=== PATIENT | female | born 1965 | race Caucasian/White ===

== ENCOUNTER 2024-03-12 23:59 | Emergency (ER) | payer OTHER, MEDICAID, SELFPAY ==
[2024-03-13] VITALS (62 sets, daily range): BP systolic 104–178; BP diastolic 57–95; PULSE 52–85; RESP 10–23; TEMP 36.8; O2SAT 86–99; BMI 34.0
[2024-03-13 00:47] LABS: Basophils % 0.4 %; Eosinophils # 0.1 10^3/uL (0.0-0.8); Eosinophils % 1.2 %; Hematocrit 43.1 % (36-47); Lymphocytes # 1.1 10^3/uL (0.8-4.8); Lymphocytes % 11.4 %; Mean Corpuscular HGB Conc 32.9 g/dL (30-55); Mean Corpuscular Hemoglobin 30.8 pg (27-33); Mean Corpuscular Volume 93.5 fl (85-98); Mean Platelet Volume 10.6 fL (7.4-10.4); Monocytes # 0.6 10^3/uL (0.2-0.9); Monocytes % 6.2 %; Neutrophils # 7.54 10^3/uL (1.8-7.7); Neutrophils % 80.4 %; Nucleated Red Blood Cells % 0 %; Platelet Count 283 10^3/cmm (157-399); Red Blood Count 4.61 10^6/uL (3.85-5.65); Red Cell Distribution Width 13.4 % (12.1-15.1); White Blood Count 9.38 10^3/uL (3.29-11.43)
--- NOTE | 2024-03-13 01:18 | ED_ITS ---
HPI - Abdominal Pain 2 General: Chief Complaint: Abdominal Pain Stated Complaint: RUQ abd pain Time Seen by Provider: 03/13/24 00:17 History of Present Illness: Patient presents today with right upper quadrant abdominal pain started around 6 PM tonight after dinner. She describes it as a sharp stabbing pain rates it a 10 out of 10, patient does have nausea vomiting with this pain. She does have a history of a pancreatic cyst and a cholecystectomy in the past. Review of Systems 2 General: Reports: 10 or more systems reviewed and unremarkable except in HPI and below Physical Exam 2 Const: COMMON NORMALS: no acute distress, average body habitus, patient oriented x3, no limitations, healthy appearing, alert and well nourished HENMT: COMMON NORMALS: normocephalic, atraumatic, hearing grossly normal bilaterally, external ears normal, Normal external nose present and moist oral mucous membranes HEAD & SCALP: normocephalic and atraumatic NOSE: Normal external nose present EXTERNAL EAR: Yes external ears normal Neck/C-Spine: COMMON NORMALS: no JVD Chest: COMMONS NORMALS: normal inspection of the chest and normal palpation of entire chest wall Resp: COMMON NORMALS: normal respiratory effort, No retractions, No use of accessory muscles and clear to auscultation bilaterally AUSCULTATION: clear to auscultation bilaterally Cardio: COMMON NORMALS: no JVD, regular rate, regular rhythm, S1 normal heart sound present, S2 normal heart sound present, No gallops present (Cardio), No clicks present (Cardio), No murmurs present (Cardio) and No rub (Cardio) R ATE: regular rate RHYTHM: regular rhythm HEART SOUNDS: S1 normal heart sound present and S2 normal heart sound present GI: COMMON NORMALS: Normal to inspection, nondistended, normoactive bowel sounds present, Soft to palpation, No hepatosplenomegaly present and no masses; negative for non-tender (Tender to palpate right upper quadrant) PALPATION: Y es Soft to palpation and Yes No hepatosplenomegaly present Neuro: COMMON NORMALS: patient oriented x3 SENSORIUM/ORIENTATION: Yes alert Course 2 Vital Signs: Vital signs: Vital Signs Temperature 98.2 F 03/13/24 00:05 Pulse Rate 58 L 03/13/24 04:00 Respiratory Rate 20 H 03/13/24 05:03 Blood Pressure 132/81 03/13/24 04:00 Pulse Oximetry 96 03/13/24 05:03 Oxygen Delivery Me thod Room Air 03/13/24 04:00 MDM - Abdominal Pain Medical Decision Making Patient results were discussed with the patient about her elevated lipase or abnormal CT scan that suggested an MRCP that was needed Dolores [place] was called Dr. Celaya in the hospital accepted patient to their med/tele bed. They will call us with a bed assignment. Differential Diagnosis Likely abdominal pain Medical Records I reviewed the patient's medical records. Lab Data I reviewed the patient's lab results. 03/13/24 00:33 03/13/24 01:22 Labs/Radiology: Radiology Impressions Abdomen/Pelvis CT 03/13/24 01:58 IMPRESSION: 1. 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 Recommend GI consultation and magnetic resonance cholangiopancreatography for further assessment. Correlate with laboratory findings and patient history for pancreatitis as there is some minimal surrounding inflammatory change at the superior aspect of this cystic lesion/mass. 2. Pleural-parenchymal nodularity of the left lower lung field as detailed above. For patients at low risk (minimal or absent history of smoking and of other known risk factors), recommend CT Chest at 6-12 months, then consider CT Chest at 18-24 months. For patients at high risk (history of smoking or of other known risk factors), recommend CT Chest at 6-12 months, then CT Chest at 18-24 months. (Reference: María) 3. Additional nonacute findings as above. REFERENCES: Ruperthomarlyn H, et al. Guidelines for Management of Incidental Pulmonary Nodules Detected on CT Images: From the Fleischner Society 2017. Radiology. 2017;284(1):228-243. Laboratory Results WBC 9.38 10^3/uL (3.29-11.43) 03/13/24 00:33 RBC 4.61 10^6/uL (3.85-5.65) 03/13/24 00:33 Hgb 14.20 g/dL (11.27-16.99) 03/13/24 00:33 Hct 43.1 % (36-47) 03/13/24 00:33 MCV 93.5 fl (85-98) 03/13/24 00:33 MCH 30.8 pg (27-33) 03/13/24 00:33 MCHC 32.9 g/dL (30-55) 03/13/24 00:33 RDW 13.4 % (12.1-15.1) 03/13/24 00:33 Plt Count 283 10^3/cmm (157-399) 03/13/24 00:33 MPV 10.6 fL (7.4-10.4) H 03/13/24 00:33 Neut % (Auto) 80.4 % 03/13/24 00:33 Lymph % (Auto) 11.4 % 03/13/24 00:33 Gonzales % (Auto) 6.2 % 03/13/24 00:33 Eos % (Auto) 1.2 % 03/13/24 00:33 Baso % (Auto) 0.4 % 03/13/24 00:33 Neut # (Auto) 7.54 10^3/uL (1.8-7.7) 03/13/24 00:33 Lymph # (Auto) 1.1 10^3/uL (0.8-4.8) 03/13/24 00:33 Gonzales # (Auto) 0.6 10^3/uL (0.2-0.9) 03/13/24 00:33 Eos # (Auto) 0.1 10^3/uL (0.0-0.8) 03/13/24 00:33 Baso # (Auto) 0.0 10^3/uL (0.0-0.1) 03/13/24 00:33 Nucleated RBC % (auto) 0 % 03/13/24 00:33 Nucleated RBCs # 0.0 /100WBC 03/13/24 00:33 Sodium 140 mmol/L (136-145) 03/13/24 01:22 Potassium 4.1 mmol/L (3.5-5.1) 03/13/24 01:22 Chloride 104 mmol/L (98-107) 03/13/24 01:22 Carbon Dioxide 24 mmol/L (22-29) 03/13/24 01:22 Anion Gap 16.1 (5-19) 03/13/24 01:22 BUN 17 mg/dL (8-23) 03/13/24 01:22 Creatinine 0.7 mg/dL (0.5-0.9) 03/13/24 01:22 GFR Calculation 85.4 mL/min (90-130) L 03/13/24 01:22 Glucose 175 mg/dL (65-115) H 03/13/24 01:22 Calculated Osmolality 296 mOsm/kg (285-295) H 03/13/24 01:22 Calcium 9.6 mg/dL (8.5-10.5) 03/13/24 01:22 Magnesium 1.8 mg/dL (1.7-2.3) 03/13/24 01:22 Total Bilirubin 0.3 mg/dL (0.15-1.2) 03/13/24 01:22 AST 18 U/L (0-32) 03/13/24 01:22 ALT 20 U/L (0-33) 03/13/24 01:22 Alkaline Phosphatase 74 U/L (35-105) 03/13/24 01:22 Total Protein 7.2 g/dL (6.6-8.7) 03/13/24 01:22 Albumin 4.2 g/dL (3.5-5.2) 03/13/24 01:22 Globulin 3.0 g/dL (1.3-4.6) 03/13/24 01:22 Lipase 822 U/L (13-60) H 03/13/24 01:22 Urine Color Yellow (Yellow) 03/13/24 01:44 Urine Appearance Clear (CLEAR) 03/13/24 01:44 Urine pH 7.0 (5-7) 03/13/24 01:44 Ur Specific [place] 1.022 (1.005-1.030) 03/13/24 01:44 Urine Protein Negative (Negative) 03/13/24 01:44 Urine Glucose (UA) Negative (Normal) 03/13/24 01:44 Urine Ketones 1+ (Negative) H 03/13/24 01:44 Urine Blood Negative (Negative) 03/13/24 01:44 Urine Nitrate Negative (Negative) 03/13/24 01:44 Urine Bilirubin Negative (Negative) 03/13/24 01:44 Urine Urobilinogen 1.0 mg/dL (Negative) 03/13/24 01:44 Ur Leukocyte Esterase Trace (Negative) A 03/13/24 01:44 Urine RBC 0-2 /hpf (0-2) 03/13/24 01:44 Urine WBC 0-5 /hpf (0-5) 03/13/24 01:44 Ur Squamous Epith Cells 0-5 /hpf (0-5) 03/13/24 01:44 Amorphous Sediment Not Reportable 03/13/24 01:44 Urine Bacteria None seen /hpf (NONE) 03/13/24 01:44 Hyaline Casts 0-4 /lpf H 03/13/24 01:44 All radiology interpretation(s) finalized by discharge Discharge Plan Discharge Patient Disposition: Xfer Short-Term Hosp Clinical Impression: Acute pancreatitis Condition: Stable Coding Level of Care Code ED Critical Care Physician for Aviva Howe
[2024-03-13] MEDS: ondansetron 2 mg/ML SDV 2 mL 4 MG IVP (01:24)
[2024-03-13] MEDS: morphine 4 mg/mL SDV 1 mL IVP ×3 (01:25→16:20)
[2024-03-13] MEDS: ketorolac 30 mg/mL INJ IVP (01:28)
[2024-03-13] MEDS: sodium chloride 0.9% 1,000 ML 999 ML IV (01:31)
[2024-03-13 01:48] LABS: Alanine Aminotransferase 20 U/L (0-33); Albumin Level 4.2 g/dL (3.5-5.2); Alkaline Phosphatase 74 U/L (35-105); Anion Gap 16.1 (5-19); Aspartate Amino Transferase 18 U/L (0-32); Blood Urea Nitrogen 17 mg/dL (8-23); Calcium 9.6 mg/dL (8.5-10.5); Carbon Dioxide 24 mmol/L (22-29); Chloride 104 mmol/L (98-107); Creatinine Clr Calc Pharmacy 82.7587; Glomerular Filtration Rate 85.4 mL/min (90-130); Glucose 175 mg/dL (65-115); Magnesium 1.8 mg/dL (1.7-2.3); Osmolality Calculated 296 mOsm/kg (285-295); Potassium 4.1 mmol/L (3.5-5.1); Sodium 140 mmol/L (136-145); Total Bilirubin 0.3 mg/dL (0.15-1.2); Total Protein 7.2 g/dL (6.6-8.7)
[2024-03-13 01:48] LABS: Charge for UA Resulting for Rev
[2024-03-13 01:51] LABS: Bilirubin Urine Negative (Negative); Blood Urine Negative (Negative); Glucose Urine UA Negative (Normal); Ketones Urine 1+ (Negative); Leukocyte Esterase Urine Trace (Negative); Nitrate Urine Negative (Negative); Protein Urine Negative (Negative); Specific Gravity, Urine 1.022 (1.005-1.030); Urine Appearance Clear (CLEAR); Urine Color Yellow (Yellow)
[2024-03-13 01:56] LABS: Bacteria Urine None Seen /hpf; Hyaline Casts Urine 0-4 /lpf; RBC Urine 0-2 /hpf (0-2); Squamous Epithelial Cell Urine 0-5 /hpf (0-5); WBC Urine 0-5 /hpf (0-5)
[2024-03-13 01:57] LABS: Lipase 822 U/L (13-60)
[2024-03-13 01:58] LABS: Add Urine Culture? No
--- NOTE | 2024-03-13 01:58 | CTR_ITS ---
PROCEDURE INFORMATION: Exam: CT Abdomen And Pelvis With Contrast Exam date and time: 03/13/2024 2:09 AM Age: 59 years old Clinical indication: Abdominal pain; Generalized; Prior surgery; Surgery date: 6+ months; Surgery type: Gallbladder; Additional info: Ruq abd pain, n/v, elevated lipase TECHNIQUE: Imaging protocol: Computed tomography of the abdomen and pelvis with contrast. Radiation optimization: All CT scans at this facility use at least one of these dose optimization techniques: automated exposure control; mA and/or kV adjustment per patient size (includes targeted exams where dose is matched to clinical indication); or iterative reconstruction. Contrast material: OMNI 350; Contrast volume: 100 ml; Contrast route: INTRAVENOUS (IV); COMPARISON: No relevant prior studies available. RADIATION DOSE METRICS: Total DLP (mGy-cm): 888.57 FINDINGS: Lungs: 8.1 x 3.8 mm single solid left lower lobe nodule (series 3, image 12). Multiple additional sub 6 mm solid pulmonary nodules are demonstrated in the left lower lobe. Heart: Base of heart is unremarkable as visualized. Diaphragm: Small fat containing posterior left diaphragmatic hernia. Liver: Normal. No mass. Gallbladder and biliary ducts: Status post cholecystectomy. Pancreas: Within the body of the pancreas there is a unilocular round cyst with simple internal fluid attenuation, measuring 4.5 x 4.2 x 5.8 cm (series 3, image 28; series 5, image 41). Solitary peripheral internal calcification is noted. Perhaps minimal surrounding inflammatory change at the superior aspect of the cystic mass. Interdigitating fat at the pancreatic head and uncinate process. Spleen: Subcentimeter incidental splenule is noted. Adrenal glands: Normal. No mass. Kidneys and ureters: Normal. No hydronephrosis. Stomach and bowel: Diverticulosis without evidence of diverticulitis. Appendix: No evidence of appendicitis. Intraperitoneal space: Unremarkable. No free air. No significant fluid collection. Vasculature: Unremarkable. No abdominal aortic aneurysm. Lymph nodes: Unremarkable. No enlarged lymph nodes. Urinary bladder: Urinary bladder is significantly decompressed limiting evaluation. Reproductive: Unremarkable as visualized. Bones/joints: Scattered degenerative change of the visualized osseous structures. Soft tissues: Unremarkable. CT/CT abdomen pelvis w con* [id number] IMPRESSION: 1. 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 Recommend GI consultation and magnetic resonance cholangiopancreatography for further assessment. Correlate with laboratory findings and patient history for pancreatitis as there is some minimal surrounding inflammatory change at the superior aspect of this cystic lesion/mass. 2. Pleural-parenchymal nodularity of the left lower lung field as detailed above. For patients at low risk (minimal or absent history of smoking and of other known risk factors), recommend CT Chest at 6-12 months, then consider CT Chest at 18-24 months. For patients at high risk (history of smoking or of other known risk factors), recommend CT Chest at 6-12 months, then CT Chest at 18-24 months. (Reference: María) 3. Additional nonacute findings as above. REFERENCES: María H, et al. Guidelines for Management of Incidental Pulmonary Nodules Detected on CT Images: From the Fleischner Society 2017. Radiology. 2017;284(1):228-243.
[2024-03-13] MEDS: iohexol 350 mg/mL 500 mL Btl (per mL) IV (02:15)
--- NOTE | 2024-03-13 13:43 | DCPLANNER ---
Called at 1342 spoke to Nilsa - No bed yet! Still waiting on Discharges -
== END 2024-03-13 20:27 | disposition short-term general hospital (02) ==
PROVIDERS: Emergency Provider Emergency Medicine
DX: K85.90 Acute pancreatitis without necrosis or infection, unspecified (principal)
CPT/HCPCS: 74177; 80053; 81003; 81015; 83690; 83735; 85025; 96374; 99285; J1885; J2270; J2405; J7030; Q9967

== ENCOUNTER 2024-04-02 12:52 | Outpatient (CLI) | payer MEDICAID, SELFPAY ==
--- NOTE | 2024-04-02 12:56 | MM_ITS ---
WS: [id number] BILATERAL 3D TOMOSYNTHESIS DIGITAL SCREENING MAMMOGRAPHY WITH CAD CLINICAL INFORMATION: SCREENING HISTORY: Screening mammogram. No current complaints. COMPARISON: Baseline TECHNIQUE: Bilateral CC and MLO views. FINDINGS: Scattered fibroglandular densities bilaterally. No suspicious focal mass, asymmetry, calcifications, or architectural distortion. No evidence of malignancy. Incidental punctate calcifications MM/[place] [id number] IMPRESSION: DENSITY: There are scattered areas of fibroglandular density. BI-RADS: 2 - Benign. FOLLOW UP: 1 Year Follow-up Recommend return to annual screening mammography.
== END 2024-04-02 12:53 | disposition home or self-care (01) ==
LOC: RAD 12:54
PROVIDERS: PCP Family Medicine; Visit Provider Nurse Practitioner Family
DX: Z12.31 Encounter for screening mammogram for malignant neoplasm of breast (principal)
CPT/HCPCS: 77063; 77067

== ENCOUNTER 2024-05-29 07:07 | Day surgery (SDC) | payer MEDICAID, SELFPAY ==
[2024-05-29 07:19] VITALS: BP 154/98; PULSE 92; RESP 18; TEMP 36.4; O2SAT 94
[2024-05-29 07:28] VITALS: BMI 35.9
[2024-05-29] MEDS: sodium chloride 0.9% 1,000 ML 30 ML IV (07:43)
--- NOTE | 2024-05-29 07:46 | P.ANESASSM_ITS ---
Pre-Anesthetic Assessment Height/Weight: Height 1.55 m Weight 86.183 kg Temp Pulse Resp BP Pulse Ox O2 Del Method 97.6 F 92 18 154/98 94 Room Air 05/29/24 07:19 05/29/24 07:19 05/29/24 07:19 05/29/24 07:19 05/29/24 07:19 05/29/24 07:19 Preop Diagnosis: screening Operation Date: 05/29/24 08:15 Proposed Procedures p Colonoscopy 23462, G0121, Z12.11(Not Applicable) - Reginald Ware DO Familial anesthetic complications: none Was Beta Maggie taken within 24 hours: N/A Was Clonidine taken within 24 hours: N/A Last intake: Intake Last Liquid Date 05/28/24 Last Liquid Time 21:00 Last Solid Date 05/27/24 Last Solid Time 19:00 Social No alcohol and No tobacco Exam alert, oriented x 3, clear to auscultation bilaterally and regular rate & rhythm Airway Submandibular: within normal limits Mallampati: Class II Comments: Comments: missing top and bottom front teeth a few molars present. Pulmonary None reported CV/HEM None reported None reported Hepatic None reported GI None reported recent episode of pancreatits per patient 3 months prior. Metabolic Diabetes Mellitus (borderline per patient ) and Morbid Obesity [facility] [place] None reported Neuropsych None reported Anesthetic Plan ASA status: 2 Anesthesia: MAC Medications/Allergies Home Medications Medication Instructions Recorded Confirmed Last Taken Type metformin 500 mg tablet,extended 500 mg PO DAILY 05/09/24 05/29/24 05/27/24 History release 24 hr Allergies Allergy/AdvReac Type Severity Reaction Status Date / Time No Known Allergies Allergy Verified 05/29/24 07:22 Current Medications Generic Name Dose Route Start Last Admin Trade Name Freq PRN Reason Stop Dose Admin Sodium Chloride 1,000 mls @ 30 mls/hr 05/28/24 12:45 05/29/24 07:43 Sodium Chloride 0.9% IV 05/29/24 12:44 30 mls/hr .Q24H AIDAN Administration PFSH Anesthesia Social History Smoking and tobacco/nicotine status: never used tobacco/nicotine Data Anesthesia Cardiac Studies: No Data to Display
[2024-05-29 07:57] LABS: Glucose Point of Care 143 mg/dL (70-110)
--- NOTE | 2024-05-29 08:10 | W.PM.OPSUD ---
Surgery/Procedure H&P Update DATE OF PROCEDURE: May 29, 2024 DATE H&P PERFORMED: 05/09/24 H&P UPDATE INFORMATION: I have reviewed H&P completed within last 30 days, I have examined patient prior to procedure and No changes to prior documentation PREOP DIAGNOSIS: screening PLANNED PROCEDURE: Operation Date: 05/29/24 08:15 Proposed Procedures p Colonoscopy 65163, G0121, Z12.11(Not Applicable) - Reginald Ware DO
[2024-05-29 08:28] VITALS: BP 120/75; PULSE 82; RESP 14; TEMP 36.3; O2SAT 94
[2024-05-29 08:40] VITALS: BP 127/75; PULSE 78; RESP 18; O2SAT 94
[2024-05-29 08:50] VITALS: BP 121/82; PULSE 71; RESP 18; O2SAT 97
--- NOTE | 2024-05-29 08:55 | ANE.PACU2 ---
Inpatient post-anesthesia follow up: Airway intact: Yes Vital signs: Temperature 97.3 F Pulse Rate 71 Respiratory Rate 18 Blood Pressure 121/82 Pulse Oximetry 97 Oxygen Delivery Me thod Room Air Oxygen Flow Rate Fraction of Inspir ed Oxygen Hydration adequate: Yes Nausea and vomiting: No Pain level: 1 Mental status: Baseline
== END 2024-05-29 08:57 | disposition home or self-care (01) ==
PROVIDERS: PCP Family Medicine; Visit Provider Surgery
PROC: 0DJD8ZZ Inspection of Lower Intestinal Tract, Via Natural or Artificial Opening Endoscopic (ICD-10-PCS; CPT 45378; principal; 2024-05-29 08:15)
DX: Z12.11 Encounter for screening for malignant neoplasm of colon (principal); D12.5 Benign neoplasm of sigmoid colon; K57.30 Diverticulosis of large intestine without perforation or abscess without bleeding; E11.9 Type 2 diabetes mellitus without complications; Z79.84 Long term (current) use of oral hypoglycemic drugs; E66.01 Morbid (severe) obesity due to excess calories; Z68.35 Body mass index [BMI] 35.0-35.9, adult
CPT/HCPCS: 36416; 45385; 82962; 88305; J2704; J7030

== ENCOUNTER 2025-04-15 12:40 | Emergency (ER) | payer SELFPAY ==
--- OUTSIDE RECORDS SUMMARY | 2025-04-15 12:45 | XMS_ITS | Clinical Summary ---
Author Organization [facility] Address [address] [place] [address] Phone Care Team Providers Care Quality Assurance Clerk Name Role Phone Unavailable Primary Care Provider Unavailabl e Allergies No known active allergies Medications metFORMIN (GLUCOPHAGE) 500 mg tablet Take 500 mg by mouth daily with breakfast. Active Active Problems Problem Noted Date Diagnosed Date Acute pancreatitis 03/13/2024 Encounters Date Type Department Care Team Description 03/11/2025 External Device Data [facility] ABSTRACTION Provider, Abstract 01/28/2025 External Device Data [facility] ABSTRACTION Provider, Abstract from Last 3 Months Social History Tobacco Use Types Packs/Day Years Used Date Smoking Tobacco: Former Cigarettes 2 1.4 S tarted: 12/2023 Tobacco Cessation:Counseling Given: Not Answered Alcohol Use Standard Drinks/Week Comments Never 0 (1 standard drink = 0.6 oz pur e alcohol) Feeling Safe Answer Date Recorded Are you in a relationship wi th someone who hurts you emotionally and/or physically? No 03/13/2024 Food Insecurity Answer Date Recorded Patient needs follow up regardin 11/28/2024 Transportation Needs Answer Date Record ed Patient needs follow up regardin 11/28/2024 Housing Stability Answer Date Recorded Social/Environmental Concerns No concerns Utility Needs Answer Date Recorded Patient needs follow up regardin 11/28/2024 Comments Unknown Sex and Gender Information Value Date Recorded Sex Assigned at Not on file Legal Sex Female 4:24 AM CDT Gender Identity Not on file Sexual Orientation Not on file Last Filed Vital Signs Vital Sign Reading Time Taken Comments Blood Pressure 128/62 03/15/2024 8:37 AM CDT Pulse 62 03/15/2024 8:37 AM CDT Temperature 36.5 C (97.7 F) 03/15/2024 8:37 AM CDT Respiratory Rate 18 03/15/2024 8:37 AM CDT Oxygen Saturation 94% 03/15/2024 8:37 AM CDT Inhaled Oxygen Concentration - - Weight 82.5 kg (181 lb 14.4 oz) 024 10:36 PM CDT Height 154.9 cm (5' 1 ) 03/13/2024 10:3 6 PM CDT Body Mass Index 34.37 03/13/2024 10:36 PM CDT Plan of Treatment Health Maintenance Due Date Last Done Comments DTAP/TDAP/TD VACCINES (1 - Tdap) 01/19/1983 HPV/Cotest (21-29) 01/19/1985 CERVICAL CANCER SCREENING 01/19/1994 HPV/Cotest (30-65) 01/19/1994 PAP SMEAR 01/19/1994 BREAST CANCER SCREENING 2004 COLORECTAL SCREENING 01/19/2009 Colorectal Cancer Screening 01/19/2009 FIT-DNA Q 3 years 01/19/2009 FIT/FOBT Q 1 year 01/19/2009 Flex Sig/CT Colonography Q 5 years 01/19/2009 ZOSTER VACCINE (1 of 2) 01/19/2014 INFLUENZA VACCINE (#1) 2025 RSV VACCINE (60+ or ) (1 - 1-dose 75+ series) 01/19/2039 Insurance [place] [id number] [facility] [employer] MEDICAID [place] [id number] Advance Directives For more information, please contact: [phone] * Full Code (Latest Code Status on File) Date Activated Date Inactivated Comments 03/13/2024 11:39 PM 03/15/2024 6:56 PM
[2025-04-15 12:50] VITALS: PULSE 81; RESP 16; TEMP 36.8; O2SAT 97; BMI 33.0
--- NOTE | 2025-04-15 12:58 | W.ED.ABDPA2 ---
HPI - Abdominal Pain General: Chief Complaint: Abdominal Pain Stated Complaint: Lower left abd pain Time Seen by Provider: 04/15/25 12:53 Related Data Home Medications ?Medication ?Instructions ?Recorded ?Confirmed metformin 500 mg tablet,extended 500 mg PO DAILY 05/09/24 05/29/24 release 24 hr Allergies Allergy/AdvReac Type Severity Reaction Status Date / Time No Known Allergies Allergy Verified 05/29/24 07:22 PFS ED PFSH: Social History Smoking and tobacco/nicotine status: never used tobacco/nicotine Course Vital Signs: Vital signs: Vital Signs Temperature 98.3 F 04/15/25 12:50 Pulse Rate 81 04/15/25 12:50 Respiratory Rate 16 04/15/25 12:50 Pulse Oximetry 97 04/15/25 12:50 Oxygen Delivery Me thod Room Air 04/15/25 12:50 Discharge Plan Discharge Condition: Stable Prescriptions: No Action metformin 500 mg tablet extended release 24 hr 500 mg PO DAILY Referrals: Madeline Richey DO [Primary Care Provider, AUTO LEASING MANAGER] Print Language: Indonesian Coding Level of Care Code ED Organ Tuner Electronic for Chg Carley
[2025-04-15 13:01] VITALS: BP 158/90
--- NOTE | 2025-04-15 13:26 | ED_ITS ---
HPI - Abdominal Pain 2 General: Chief Complaint: Abdominal Pain Stated Complaint: Lower left abd pain Time Seen by Provider: 04/15/25 12:53 History of Present Illness: 60-year-old female presents emergency ro om complaining of left lower quadrant abdominal pain. Most of her pain however is in the groin itself she says she has had it for a week no nausea or vomiting no dysuria urgency. She states its painful when she voids is particularly painful when she moves. Demonstrated at the bedside when she flexes at the hip or with any palpation over the ilioinguinal ligament she has severe pain. She has not noticed any bulging or masses in the region. No fever sweats or chills no hematuria. Patient previously has had a cholecystectomy. Associated Symptoms: Denies chills, dysuria and fever(s) Related Data Home Medications ?Medication ?Instructions ?Recorded ?Confirmed ibuprofen 200 mg tablet (Advil) 400 mg PO Q6H PRN Feve r Or Pain 04/15/25 04/15/25 Previous Rx's ?Medication ?Instructions ?Recorded cephalexin 500 mg capsule 500 mg PO TID 7 days #21 cap s 04/15/25 diclofenac sodium 75 mg 75 mg PO Q12H PRN pain #20 t abs 04/15/25 tablet,delayed release Allergies Allergy/AdvReac Type Severity Reaction Status Date / Time No Known Allergies Allergy Verified 05/29/24 07:22 Review of Systems 2 Const: Denies: fever(s) or chills Card: Denies: chest pain Resp: Denies: dyspnea GI: Denies: abdominal pain : Denies: dysuria, urinary frequency or urinary urgency Musc: Denies: neck pain or back pain Skin/Breast: Denies: rash PFSH ED 2 PFSH: Social History Smoking and tobacco/nicotine status: never used tobacco/nicotine Physical Exam 2 Const: ORIENTATION/CONSCIOUSNESS: Yes awake, Yes oriented to person, Yes oriented to place and Yes oriented to time HENMT: COMMON NORMALS: normocephalic, atraumatic and hearing grossly normal bilaterally HEAD & SCALP: normocephalic and atraumatic Resp: COMMON NORMALS: normal respiratory effort, No retractions, No use of accessory muscles and clear to auscultation bilaterally AUSCULTATION: clear to auscultation bilaterally Cardio: COMMON NORMALS: regular rate, regular rhythm and No murmurs present (Cardio) RATE: regular rate RHYTHM: regular rhythm GI: COMMON NORMALS: Soft to palpation and No hepatosplenomegaly present A USCULTATION: Yes normoactive bowel sounds PALPATION: Yes Soft to palpation, No Tenderness to palpation present (GI), No Guarding due to palpation present (GI) and Yes No hepatosplenomegaly present OTHER: Pain with palpation over the left ilioinguinal ligament no bulging or mass noted. No lymphadenopathy noted. Extremity: COMMON NORMALS: normal to inspection, capillary refill normal, no clubbing, cyanosis or edema, no calf tenderness and no pedal edema Neuro: SENSORIUM/ORIENTATION: Yes oriented to person, Yes oriented to place and Yes oriented to time Skin: COMMON NORMALS: no rashes or lesions noted GENERAL SKIN EXAM: no rashes or lesions noted Course 2 Vital Signs: Vital signs: Vital Signs Temperature 98.3 F 04/15/25 12:50 Pulse Rate 92 04/15/25 14:49 Respiratory Rate 16 04/15/25 12:50 Blood Pressure 151/109 04/15/25 14:49 Pulse Oximetry 95 04/15/25 14:49 Oxygen Delivery Me thod Room Air 04/15/25 12:50 MDM - Abdominal Pain Medical Decision Making Most of her pain is directly over the ilioinguinal ligament there is no palpable mass there I do not note a hernia on direct physical exam. Pain is reproducible with palpation over the ileal inguinal ligament and whenever she moves in that region. She does have a mild cystitis I suspect these are 2 separate issues. Will start her on diclofenac. She can also use ice or heat in that region. Additionally started cephalexin for the bladder infection. Medical Records I reviewed the patient's medical records. Lab Data I reviewed the patient's lab results. 04/15/25 13:16 04/15/25 13:16 Labs/Radiology: Laboratory Results WBC 7.23 10^3/uL (3.29-11.43) 04/15/25 13:16 RBC 4.57 10^6/uL (3.85-5.65) 04/15/25 13:16 Hgb 14.10 g/dL (11.27-16.99) 04/15/25 13:16 Hct 42.5 % (36-47) 04/15/25 13:16 MCV 93.0 fl (85-98) 04/15/25 13:16 MCH 30.9 pg (27-33) 04/15/25 13:16 MCHC 33.2 g/dL (30-55) 04/15/25 13:16 RDW 13.3 % (12.1-15.1) 04/15/25 13:16 Plt Count 301 10^3/cmm (157-399) 04/15/25 13:16 MPV 10.4 fL (7.4-10.4) 04/15/25 13:16 Neut % (Auto) 71.1 % 04/15/25 13:16 Lymph % (Auto) 18.5 % 04/15/25 13:16 [place] % (Auto) 7.6 % 04/15/25 13:16 Eos % (Auto) 2.1 % 04/15/25 13:16 Baso % (Auto) 0.4 % 04/15/25 13:16 Neut # (Auto) 5.14 10^3/uL (1.8-7.7) 04/15/25 13:16 Lymph # (Auto) 1.3 10^3/uL (0.8-4.8) 04/15/25 13:16 [place] # (Auto) 0.6 10^3/uL (0.2-0.9) 04/15/25 13:16 Eos # (Auto) 0.2 10^3/uL (0.0-0.8) 04/15/25 13:16 Baso # (Auto) 0.0 10^3/uL (0.0-0.1) 04/15/25 13:16 Nucleated RBC % (auto) 0 % 04/15/25 13:16 Nucleated RBCs # 0.0 /100WBC 04/15/25 13:16 Sodium 140 mmol/L (136-145) 04/15/25 13:16 Potassium 4.8 mmol/L (3.5-5.1) 04/15/25 13:16 Chloride 106 mmol/L (98-107) 04/15/25 13:16 Carbon Dioxide 25 mmol/L (22-29) 04/15/25 13:16 Anion Gap 13.8 (5-19) 04/15/25 13:16 BUN 14 mg/dL (8-23) 04/15/25 13:16 Creatinine 0.7 mg/dL (0.5-0.9) 04/15/25 13:16 GFR Calculation 85.1 mL/min (90-130) L 04/15/25 13:16 Glucose 141 mg/dL (65-115) H 04/15/25 13:16 Calculated Osmolality 293 mOsm/kg (285-295) 04/15/25 13:16 Calcium 9.6 mg/dL (8.5-10.5) 04/15/25 13:16 Total Bilirubin 0.3 mg/dL (0.15-1.2) 04/15/25 13:16 AST 23 U/L (0-32) 04/15/25 13:16 ALT 26 U/L (0-33) 04/15/25 13:16 Alkaline Phosphatase 78 U/L (35-105) 04/15/25 13:16 C-Reactive Protein 19.8 mg/L (0.0-4.9) H 04/15/25 13:16 Total Protein 7.6 g/dL (6.6-8.7) 04/15/25 13:16 Albumin 4.2 g/dL (3.5-5.2) 04/15/25 13:16 Globulin 3.4 g/dL (1.3-4.6) 04/15/25 13:16 Lipase 28 U/L (13-60) 04/15/25 13:16 Urine Color Yellow (Yellow) 04/15/25 13:42 Urine Appearance Cloudy (CLEAR) A 04/15/25 13:42 Urine pH 6.0 (5-7) 04/15/25 13:42 Ur Specific [place] 1.021 (1.005-1.030) 04/15/25 13:42 Urine Protein Negative (Negative) 04/15/25 13:42 Urine Glucose (UA) Negative (Normal) 04/15/25 13:42 Urine Ketones Trace (Negative) 04/15/25 13:42 Urine Blood Negative (Negative) 04/15/25 13:42 Urine Nitrate Negative (Negative) 04/15/25 13:42 Urine Bilirubin Negative (Negative) 04/15/25 13:42 Urine Urobilinogen 1.0 mg/dL (Negative) 04/15/25 13:42 Ur Leukocyte Esterase 3+ (Negative) A 04/15/25 13:42 Urine RBC 0-2 /hpf (0-2) 04/15/25 13:42 Urine WBC 51-100 /hpf (0-5) H 04/15/25 13:42 Ur Squamous Epith Cells 6-10 /hpf (0-5) 04/15/25 13:42 Amorphous Sediment Not Reportable 04/15/25 13:42 Urine Bacteria 2+ /hpf (NONE) H 04/15/25 13:42 Hyaline Casts 1.65 /lpf 04/15/25 13:42 All radiology interpretation(s) finalized by discharge Discharge Plan Discharge Patient Disposition: Home Clinical Impression: Cystitis, Ilio-inguinal strain Condition: Stable Prescriptions: New cephalexin 500 mg capsule 500 mg PO TID 7 Days Qty: 21 0RF diclofenac sodium 75 mg tablet,delayed release (DR/EC) 75 mg PO Q12H PRN (Reason: pain) Qty: 20 0RF No Action ibuprofen [Advil] 200 mg Tablet 400 mg PO Q6H PRN (Reason: Fever Or Pain) Discharge Orders: Discharge ED (Routine); Ordered 04/15/25 Ordered By: Agustin Brown Referrals: Madeline Richey DO [Primary Care Provider, [employer]] Discharge Diet: Usual diet Discharge Activity: Increase activity as tolerated Patient Instructions: Opioid Safety, Pain Management, Patient Portal & [place] Instructions Activity Restrictions/Additional Instructions: Thank you for choosing [facility] [place] for your healthcare needs today. It is very important that you follow up as instructed or that you return to the Emergency Department should you have concerns or if your condition changes or worsens in any way. Emergency department visits are focused on emergent conditions, in some cases you may require further evaluation on an outpatient basis. You were seen in the emergency room with complaints of left groin pain. On exam there is exquisite tenderness over the ilioinguinal ligament. You were noted to have a bladder infection as well. You are started on oral antibiotic cephalexin 3 times a day. (Please note that included in your discharge packet is information concerning opioid safety and pain management. This information is given to all patients were discharged from the ER regardless of their discharge diagnosis or the medicines they usually take or are prescribed.) Print Language: Belarusian Coding Level of Care Code ED Spectroscopist for Aviva Howe
[2025-04-15 13:27] LABS: Hematocrit 42.5 % (36-47); Hemoglobin 14.10 g/dL (11.27-16.99); Mean Corpuscular HGB Conc 33.2 g/dL (30-55); Mean Corpuscular Hemoglobin 30.9 pg (27-33); Mean Corpuscular Volume 93.0 fl (85-98); Nucleated Red Blood Cells % 0 %; Platelet Count 301 10^3/cmm (157-399); Red Blood Count 4.57 10^6/uL (3.85-5.65); White Blood Count 7.23 10^3/uL (3.29-11.43)
[2025-04-15 13:46] LABS: Alanine Aminotransferase 26 U/L (0-33); Albumin Level 4.2 g/dL (3.5-5.2); Alkaline Phosphatase 78 U/L (35-105); Blood Urea Nitrogen 14 mg/dL (8-23); Calcium 9.6 mg/dL (8.5-10.5); Carbon Dioxide 25 mmol/L (22-29); Chloride 106 mmol/L (98-107); Creatinine Clr Calc Pharmacy 80.5155; Globulin 3.4 g/dL (1.3-4.6); Glucose 141 mg/dL (65-115); Lipase 28 U/L (13-60); Osmolality Calculated 293 mOsm/kg (285-295); Sodium 140 mmol/L (136-145); Total Protein 7.6 g/dL (6.6-8.7)
[2025-04-15 13:48] LABS: Anion Gap 13.8 (5-19); Aspartate Amino Transferase 23 U/L (0-32); Potassium 4.8 mmol/L (3.5-5.1)
[2025-04-15 13:49] LABS: Glucose Urine UA Negative (Normal); Nitrate Urine Negative (Negative); Specific Gravity, Urine 1.021 (1.005-1.030)
[2025-04-15 13:54] LABS: Add Urine Microscopic? YES
[2025-04-15 14:49] VITALS: BP 151/109; PULSE 92; O2SAT 95
== END 2025-04-15 14:50 | disposition home or self-care (01) ==
PROVIDERS: Emergency Medicine; Emergency Provider Family Medicine; PCP Family Medicine
DX: N30.90 Cystitis, unspecified without hematuria (principal); S76.812A Strain of other specified muscles, fascia and tendons at thigh level, left thigh, initial encounter; X58.XXXA Exposure to other specified factors, initial encounter
CPT/HCPCS: 36415; 80053; 81001; 83690; 85025; 86140; 87086; 96374; 99284; J1885